=== PATIENT | female | born 1970 | race Caucasian/White ===

== ENCOUNTER 2017-08-03 08:00 | Outpatient (RCR) | payer BC ==
[~2017-08-03 08:00] MED LIST: FLEXERIL 1010 MG/TAB PO; NO HOME MEDICATIONS; VICODIN 5/5001 UDTAB PO
== END 2017-09-29 11:37 | disposition home or self-care (01) ==
LOC: MKS.ESL.PT 08:00
DX: S93.491D Sprain of other ligament of right ankle, subsequent encounter (principal); W01.0XXD Fall on same level from slipping, tripping and stumbling without subsequent striking against object, subsequent encounter

== ENCOUNTER 2021-08-09 03:04 | Emergency (ER) | payer BC ==
[~2021-08-09] VITALS: Ht 177.8 cm; Wt 131.8 kg
[2021-08-09 03:13] VITALS: TEMP 98.6
[2021-08-09 04:36] VITALS: BP 149/82; PULSE 75
== END 2021-08-09 04:36 | disposition home or self-care (01) ==
LOC: COL.ER 03:04
DX: S86.912A Strain of unspecified muscle(s) and tendon(s) at lower leg level, left leg, initial encounter (principal); Z28.311 Partially vaccinated for COVID-19; W10.9XXA Fall (on) (from) unspecified stairs and steps, initial encounter; Y93.01 Activity, walking, marching and hiking
CPT/HCPCS: 31289; L1830; L1846